=== PATIENT | female | born 1985 | race Two or more races ===

== ENCOUNTER 2016-03-11 16:13 | Emergency (ER) | payer MEDICAID ==
[~2016-03-11] VITALS: Ht 162.6 cm; Wt 64.0 kg
[2016-03-11 16:24] VITALS: Ht 162.6 cm; Wt 64.0 kg
[2016-03-11] MEDS ORDERED: IBUPROFEN 600 MG TAB PO ONE (17:30)
[2016-03-11] MEDS ORDERED: HYDROCODONE/APAP (5/325) TAB PO ONE (17:30)
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
[2016-03-11] MEDS ORDERED: NAPR-260 PO (18:35)
[2016-03-11] MEDS ORDERED: CYCL5TAB PO (18:35)
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
[2016-03-11 18:51] VITALS: BP 121/64; PULSE 66; RESP 16; TEMP 98.1
== END 2016-03-11 18:52 | disposition home or self-care (01) ==
LOC: FTE 16:13
DX: S80.11XA Contusion of right lower leg, initial encounter (principal); S43.401A Unspecified sprain of right shoulder joint, initial encounter; V89.2XXA Person injured in unspecified motor-vehicle accident, traffic, initial encounter
CPT/HCPCS: 73030; 73550; Z7502; Z7610